=== PATIENT | male | born 1950 | race Two or more races ===

== ENCOUNTER 2020-04-08 10:26 | Outpatient (CLI) | payer OTHER | END 2020-04-14 10:34 | disposition home or self-care (01) | LOC: RAD 10:26 | PROVIDERS: ATTEND Colon & Rectal Surgery | DX: K59.09 Other constipation (principal) | CPT/HCPCS: 74018; 78266; A9541 ==

== ENCOUNTER 2020-05-28 11:45 | Inpatient (IN) | payer OTHER ==
[~2020-05-28] VITALS: Ht 172.7 cm; Wt 83.9 kg
[2020-05-28] MEDS ORDERED: WELLBUTRIN XL300 MG PO (14:14)
[2020-05-28] MEDS ORDERED: XANAX XR0.5 MG PO (14:15)
[2020-05-28] MEDS ORDERED: AZOR 10-40 MG1 EACH PO (14:15)
[2020-05-28] MEDS ORDERED: TOPROL XL100 M1 PO (14:15)
[2020-05-28] MEDS ORDERED: SINEMET 25-2501 EACH PO (14:15)
[2020-05-28] MEDS ORDERED: REMERON15 MG PO (14:16)
[2020-05-28] MEDS ORDERED: CIALIS5 MG PO (14:16)
[2020-06-04] MEDS ORDERED: RASAGILINE MES0.5 MG (08:20)
[2020-06-04] MEDS ORDERED: ATORVASTATIN CA20 MG (08:20)
== END 2020-06-06 19:02 | disposition home or self-care (01) | DRG 331 ==
LOC: O/R 06-04 07:35 → SURH 06-04 11:45
PROVIDERS: ADMIT Colon & Rectal Surgery; ATTEND Colon & Rectal Surgery
PROC: 0DTP4ZZ Resection of Rectum, Percutaneous Endoscopic Approach (ICD-10-PCS; 2020-06-04)
PROC: 0DTN4ZZ Resection of Sigmoid Colon, Percutaneous Endoscopic Approach (ICD-10-PCS; principal; 2020-06-04 13:00)
DX: K59.09 Other constipation (principal); K59.02 Outlet dysfunction constipation; I10 Essential (primary) hypertension; G20 Parkinson's disease

== ENCOUNTER 2020-05-31 07:11 | Outpatient (CLI) | payer OTHER ==
[~2020-05-31 07:11] MED LIST: AZOR 10-40 MG1 EACH PO; CIALIS5 MG PO; REMERON15 MG PO; SINEMET 25-2501 EACH PO; TOPROL XL100 M1 PO; WELLBUTRIN XL300 MG PO; XANAX XR0.5 MG PO
== END 2020-05-31 15:00 | disposition home or self-care (01) ==
LOC: LAB 07:11
PROVIDERS: ATTEND Colon & Rectal Surgery
DX: Z03.818 Encounter for observation for suspected exposure to other biological agents ruled out (principal); Z11.59 Encounter for screening for other viral diseases

== ENCOUNTER 2024-12-19 12:15 | Emergency (ER) | payer OTHER ==
[~2024-12-19] VITALS: Ht 172.7 cm; Wt 81.6 kg
[~2024-12-19 12:15] MED LIST changes: +ATORVASTATIN CA20 MG; +RASAGILINE MES0.5 MG
[2024-12-19] MEDS ORDERED: REMERON30 M1 PO (13:29)
[2024-12-19] MEDS ORDERED: AZASITE2.5 ML OP (13:30)
[2024-12-19] MEDS ORDERED: SINEMET 25-1001 EACH PO (13:30)
[2024-12-19] MEDS ORDERED: DIATRIZOATE MEGLUMINE, SODIUM 30 ML BOTTLE PO ONE (13:45)
[2024-12-19] MEDS ORDERED: 0.9 % SODIUM CHLORIDE 1,000 ML IV SCH (13:45)
[2024-12-19] MEDS ORDERED: ONDANSETRON HCL 4 MG in 0.9 % SODIUM CHLORIDE 50 ML IV ONE (13:45)
[2024-12-19] MEDS ORDERED: KETOROLAC TROMETHAMINE 15 MG VIAL IU ONE (13:45)
[2024-12-19] MEDS ORDERED: FAMOTIDINE/PF 20 MG in 0.9 % SODIUM CHLORIDE 8 ML IV PUSH ONE (13:45)
[2024-12-19] MEDS ORDERED: FAMOTIDINE/PF 20 MG/2 ML VIAL ONE (14:08)
[2024-12-19] MEDS ORDERED: DIATRIZOATE MEGLUMINE, SODIUM 30 ML BOTTLE ONE (14:08)
[2024-12-19] MEDS ORDERED: ONDANSETRON HCL 2 MG/ML VIAL ONE (14:08)
[2024-12-19] MEDS ORDERED: KETOROLAC TROMETHAMINE 30 MG VIAL ONE (14:17)
[2024-12-19 15:29] LABS: BASO % 0.8 % (0.1-1.2); EOS # 0.70 (0.04-0.54); EOS % 8.2 % (0.7-7.0); LYMPH # 1.93 (1.18-3.74); LYMPH % 22.5 % (19.3-53.1); MEAN PLATELET VOLUME 10.10 fl (9.4-12.4); MONO # 0.69 (0.24-0.82); MONO % 8.1 % (4.7-12.5); NEUT # 5.15 (1.56-6.13); NEUT % 60.0 % (34.0-71.1); RED CELL DISTRIBUTION WIDTH 12.0 % (11.6-14.4)
[2024-12-19 15:54] LABS: ALT/SGPT 14.0 U/L (12-78); AST/SGOT 14.0 U/L (15-37); BILIRUBIN TOTAL 0.86 mg/dL (0.3-1.2); BUN CREA RATIO 15.0 (7.0-25.0); CREATININE SERUM 1.29 mg/dL (0.70-1.30); GFR 54.44; GLOBULINA 4.1 G/DL (2.4-3.5); GLUCOSE FASTING 108.0 mg/dL (65-100); OSMOLALITY SERUM 284.0 MOSM/KG (275-295)
[2024-12-19 15:55] LABS: INR 1.06
[2024-12-19] MEDS ORDERED: MIRALAX510 GM PO (20:26)
== END 2024-12-19 20:48 | disposition home or self-care (01) ==
LOC: ER 12:15
PROVIDERS: General Practice
DX: K59.03 Drug induced constipation (principal); R10.9 Unspecified abdominal pain; G20.A1 Parkinson's disease without dyskinesia, without mention of fluctuations; I10 Essential (primary) hypertension; E11.9 Type 2 diabetes mellitus without complications; K59.00 Constipation, unspecified; F41.9 Anxiety disorder, unspecified
CPT/HCPCS: 36415; 74177; 96365; 96366; 99284; J1885; J2405; J3490; J7030; Q9965